=== PATIENT | female | born 1960 | race Caucasian/White ===

== ENCOUNTER → 2016-10-18 | Outpatient (CLI) | payer OTHER ==
--- NOTE | ~2016-10-18 | EE ---
Unit #: [id number] #: [id number] Patient: NAIMA DELGADO [id number] [address] [address] [id number] MR#: [id number] NAME: NAIMA DELGADO. : 1960 SEX: F STUDY DATE/TIME: 10/18/2016 UNIT: CEEG ROOM: STUDY DESCRIPTION: Attending Physician: Annette Harry M.D. Referring Physician: Annette Harry M.D. Primary Care Physician: Darlene Gold M.D. NEURODIAGNOSTICS REPORT EXAM EEG. REASON FOR STUDY Seizures. TECH Kimberly. TECHNICAL INFORMATION This is a routine EEG performed using the standard international 10/20 system electrode placement. Photic stimulation was performed. Hyperventilation was also performed. REPORT Throughout the entire study, the best background rhythm seen is approximately 10 Hz. This rhythm is seen in both posterior head regions symmetrically and does attenuate to eye opening and closure. Hyperventilation was performed which did not elicit any abnormal buildup. Photic stimulation was also performed which failed to elicit any epileptiform abnormalities; however, a good photic driving response was seen. Throughout the entire study, there were no electrocardiographic seizures recorded, nor were there any independent epileptiform abnormalities seen. INTERPRETATION This is a normal awake EEG. A normal EEG does not rule out the possibility of a seizure disorder. Clinical correlation is advised. Dictated by... Prince Gee II., M.D. GWS/savannah TD: 10/29/2016 11:42 JOB #: [id number] Unit #: [id number] #: [id number] Patient: NAIMA DELGADO NEURODIAGNOSTICS REPORT Page 1 of 1 X NEURODIAGNOSTICS REPORT
== END | disposition home or self-care (01) ==
LOC: CEEG 07:17
DX: R41.0 Disorientation, unspecified (principal)
CPT/HCPCS: 95816